=== PATIENT | female | born 1985 | race Caucasian/White ===

== ENCOUNTER 2017-11-16 08:11 | Outpatient (CLI) | payer OTHER | END 2017-11-16 08:27 | disposition home or self-care (01) | LOC: MAMO-SONO 08:11 | DX: N64.4 Mastodynia (principal); Z12.31 Encounter for screening mammogram for malignant neoplasm of breast ==

== ENCOUNTER → 2020-09-02 | Outpatient (CLI) | payer OTHER | END | disposition home or self-care (01) | LOC: RX STUDY 11:46 | DX: N70.11 Chronic salpingitis (principal) ==

== ENCOUNTER 2021-11-23 10:10 | Outpatient (CLI) | payer OTHER | END 2021-11-23 10:19 | disposition home or self-care (01) | LOC: MAMO-SONO 10:10 | PROVIDERS: ATTEND Obstetrics & Gynecology | DX: Z12.31 Encounter for screening mammogram for malignant neoplasm of breast (principal); N60.19 Diffuse cystic mastopathy of unspecified breast ==

== ENCOUNTER 2022-06-17 09:19 | Outpatient (CLI) | payer OTHER | END 2022-06-17 09:27 | disposition home or self-care (01) | LOC: RAD 09:19 | DX: R05.1 Acute cough (principal) ==

== ENCOUNTER 2024-01-02 10:40 | Outpatient (CLI) | payer OTHER | END 2024-01-02 10:50 | disposition home or self-care (01) | LOC: MAMO-SONO 10:40 | PROVIDERS: ATTEND Obstetrics & Gynecology | DX: N60.19 Diffuse cystic mastopathy of unspecified breast (principal); Z12.31 Encounter for screening mammogram for malignant neoplasm of breast ==